=== PATIENT | female | born 1990 | race Caucasian/White ===

== ENCOUNTER 2017-04-24 12:55 | Emergency (ER) | payer SELFPAY ==
[~2017-04-24] VITALS: Ht 165.1 cm; Wt 49.5 kg
[~2017-04-24 12:55] MED LIST: TYLENOL WITH C1 EACH PO
[2017-04-24 13:46] LABS: ADD MIUA? YES; BILIRUBIN NEGATIVE; BLOOD NEGATIVE; COLOR AMBER ((YELLOW)); GLUCOSE (STRIP) NEGATIVE; KETONES NEGATIVE; LEUKOCYTES MODERATE; NITRITE NEGATIVE; PROTEIN (STRIP) 30; SPECIFIC GRAVITY 1.014 (1.000-1.030)
[2017-04-24 14:00] LABS: HEMATOCRIT 41.7 % (36.0-46.0); MCH 30.1 PG (29.0-34.0); PLATELET COUNT 260 K/uL (156-360); RBC DIS.WIDTH-SD 40.3 % (39-53); RED BLOOD COUNT 4.85 M/uL (3.80-5.20); WHITE BLOOD COUNT 12.9 K/uL (4.1-10.2)
[2017-04-24 14:01] LABS: BACTERIA 3+ /HPF; EPITHELIAL CELLS 3+ /HPF; MUCUS NONE SEEN /LPF; RED BLOOD CELLS NONE SEEN /HPF (0-5); WHITE BLOOD CELLS 20-30 /HPF (0-5)
[2017-04-24 14:09] LABS: CHLORIDE 110 mEq/L (99-109); POTASSIUM 3.5 mEq/L (3.7-5.4); SODIUM 138 mEq/L (136-147)
[2017-04-24 14:10] LABS: GLUCOSE 80 mg/dL (70-99)
[2017-04-24 14:12] LABS: ANION GAP 9 MEQ/L (2-14)
[2017-04-24 14:14] LABS: GFR ESTIMATE (CALCULATED) > 59 mL/min/
[2017-04-24 14:15] LABS: UREA NITROGEN (BUN) 4 mg/dL (9-23)
[2017-04-24] MEDS ORDERED: ZOFRAN ODT4 MG PO (14:33)
[2017-04-24] MEDS ORDERED: BENADRYL50 MG PO (14:33)
[2017-04-24] MEDS ORDERED: KEFLEX500 MG PO (14:33)
[2017-04-24 14:54] VITALS: BP 109/68
== END 2017-04-24 14:56 | disposition home or self-care (01) ==
LOC: EME 12:55
PROVIDERS: Physician Assistant
DX: O23.42 Unspecified infection of urinary tract in pregnancy, second trimester (principal); R11.2 Nausea with vomiting, unspecified; F11.23 Opioid dependence with withdrawal; Z3A.15 15 weeks gestation of pregnancy; O99.332 Smoking (tobacco) complicating pregnancy, second trimester
CPT/HCPCS: 80048; 81003; 84702; 85027; 99281; 99285; J1200; J2405; J7030

== ENCOUNTER 2017-10-08 12:07 | Inpatient (IN) | payer OTHER ==
[2017-10-08] VITALS (23 sets, daily range): BP systolic 109–192; BP diastolic 53–90
[~2017-10-08] VITALS: Ht 165.1 cm; Wt 62.5 kg
[~2017-10-08 12:07] MED LIST changes: +BENADRYL50 MG PO; +KEFLEX500 MG PO; +ZOFRAN ODT4 MG PO
[2017-10-08 13:38] LABS: AMPHETAMINES QUANT VALUE 0 NG/ML; BARBITUATES QUANT VALUE 0 NG/ML; BENZODIAZEPINES QUANT VALUE 0 NG/ML; BENZODIAZEPINES, URINE SCREEN Negative (200 ng/mL); MARIJUANA QUANT VALUE 0 NG/ML; OPIATES QUANTITATIVE VALUE 0 NG/ML; PHENCYCLIDINE QUANT VALUE 0 NG/ML
[2017-10-08] MEDS ORDERED: BUPRENORPHINE HC8 MG SL (13:43)
[2017-10-08] MEDS ORDERED: PRENATAL COMPL1 EACH PO (13:43)
[2017-10-08 14:07] LABS: EOSINOPHIL (%) 0.3 % (0-5); EOSINOPHIL COUNT 0.1 K/uL (0-0.3); HEMATOCRIT 39.4 % (36.0-46.0); IMMATURE GRANULOCYTE COUNT 0.2 K/uL; INSTRUMENT ABS NEUTROPHIL CT 12.3 K/uL; LYMPHOCYTE COUNT 2.4 K/uL (1.0-2.8); MCH 28.8 PG (29.0-34.0); MCHC 32.5 G/DL (30.0-36.0); MCV 88.7 FL (83-99); MEAN PLAT.VOLUME 11.3 uM^3 (9.5-12.4); MONOCYTE (%) 4.9 % (3-12); MONOCYTE COUNT 0.8 K/uL (0-0.8); NEUTROPHIL (%) 78.4 % (45-76); NEUTROPHIL COUNT 12.3 K/uL (1.8-6.4); PLATELET COUNT 229 K/uL (156-360); RBC DIS.WIDTH-CV 15.3 % (11.8-14.6); RBC DIS.WIDTH-SD 49.6 % (39-53); RED BLOOD COUNT 4.44 M/uL (3.80-5.20); WHITE BLOOD COUNT 15.6 K/uL (4.1-10.2)
[2017-10-08 14:33] LABS: ALKALINE PHOSPHATASE 221 IU/L (3-129); ANION GAP 9 MEQ/L (2-14); CHLORIDE 105 MEQ/L (99-109); GFR ESTIMATE (CALCULATED) > 59 mL/min/; GLUCOSE 83 mg/dL (70-99); POTASSIUM 3.7 MEQ/L (3.7-5.4); SAMPLE HEMOLYSIS CHECK 0; SAMPLE ICTERIC CHECK 1; SAMPLE LIPEMIA CHECK 0; SODIUM 138 MEQ/L (136-147); TOTAL BILIRUBIN 3.4 MG/DL (0.0-1.0); UREA NITROGEN (BUN) 3 mg/dL (9-23)
[2017-10-08 15:17] LABS: PROBE CHECK PASS
[2017-10-08 15:49] LABS: AMPHETAMINE NEGATIVE (500 ng/mL); BARBITURATES NEGATIVE (200 ng/mL); BENZODIAZEPINES NEGATIVE (150 ng/mL); COCAINE NEGATIVE (150 ng/mL); INTERNAL CONTROLS VALID? YES; METHADONE NEGATIVE (200 ng/mL); METHAMPHETAMINE NEGATIVE (500 ng/mL); OPIATES (MORPHINE) NEGATIVE (100 ng/mL); OXYCODONE NEGATIVE (100 ng/mL); PHENCYCLIDINE NEGATIVE (25 ng/mL); PROPOXYPHENE NEGATIVE (300 ng/mL); THC CANNABINOIDS NEGATIVE (50 ng/mL); TRICYCLIC ANTIDEPRESSANTS NEGATIVE (300 ng/mL)
[2017-10-09 05:46] LABS: BASOPHIL COUNT 0.1 K/uL (0-0.1); EOSINOPHIL (%) 0.2 % (0-5); HEMATOCRIT 30.5 % (36.0-46.0); IMMATURE GRANULOCYTE (%) 0.7 % (0.0-0.7); IMMATURE GRANULOCYTE COUNT 0.2 K/uL; INSTRUMENT ABS NEUTROPHIL CT 16.5 K/uL; LYMPHOCYTE COUNT 3.2 K/uL (1.0-2.8); MCH 29.9 PG (29.0-34.0); MCHC 34.1 G/DL (30.0-36.0); MCV 87.6 FL (83-99); MEAN PLAT.VOLUME 11.9 uM^3 (9.5-12.4); MONOCYTE (%) 5.9 % (3-12); MONOCYTE COUNT 1.3 K/uL (0-0.8); NEUTROPHIL (%) 77.8 % (45-76); NEUTROPHIL COUNT 16.5 K/uL (1.8-6.4); PLATELET COUNT 210 K/uL (156-360); RBC DIS.WIDTH-CV 15.2 % (11.8-14.6); RBC DIS.WIDTH-SD 48.3 % (39-53); WHITE BLOOD COUNT 21.2 K/uL (4.1-10.2)
[2017-10-09 05:47] LABS: RED BLOOD COUNT 3.48 M/uL (3.80-5.20)
[2017-10-09 07:40] VITALS: BP 112/67
[2017-10-09 10:34] LABS: HBSG INDEX 0.13
[2017-10-09 10:35] LABS: ANTI-HEPATITIS A VIRUS (IGM) Nonreactive; HAV INDEX 0.29
[2017-10-09 10:36] LABS: ANTI-HEPATITIS B CORE (IGM) Nonreactive
[2017-10-09 10:38] LABS: HPCA INDEX 12.22
[2017-10-09 15:00] VITALS: BP 121/70
[2017-10-09 17:03] LABS: ANTI-HIV (AIDS STAT TEST) NONREACTIVE; INTERNAL CONTROL VALID? YES
[2017-10-09 22:26] VITALS: BP 125/60
[2017-10-10 07:45] VITALS: BP 129/78
[2017-10-10] MEDS ORDERED: IBUPROFEN800 MG PO (10:51)
[2017-10-10] MEDS ORDERED: MACROBID100 MG PO (10:59)
[2017-10-10] MEDS ORDERED: MOTRIN800 MG PO (11:01)
[2017-10-10 11:07] LABS: HIV INDEX 0.09; HIV-1/2 AB/AG COMBO Nonreactive
[2017-10-10 16:14] VITALS: BP 115/64
== END 2017-10-10 23:36 | disposition home or self-care (01) | DRG 775 ==
LOC: LDRP-OP 12:07 → 2WEST 12:08
PROVIDERS: Advanced Practice Midwife
PROC: 3E0R3BZ Introduction of Anesthetic Agent into Spinal Canal, Percutaneous Approach (ICD-10-PCS; principal; 2017-10-08)
PROC: 00HU33Z Insertion of Infusion Device into Spinal Canal, Percutaneous Approach (ICD-10-PCS; principal; 2017-10-08)
PROC: 10E0XZZ Delivery of Products of Conception, External Approach (ICD-10-PCS; principal; 2017-10-08)
PROC: 0HQ9XZZ Repair Perineum Skin, External Approach (ICD-10-PCS; principal; 2017-10-08)
DX: O99.324 Drug use complicating childbirth (principal); F11.20 Opioid dependence, uncomplicated; F14.10 Cocaine abuse, uncomplicated; O99.334 Smoking (tobacco) complicating childbirth; O69.81X0 Labor and delivery complicated by cord around neck, without compression, not applicable or unspecified; F17.210 Nicotine dependence, cigarettes, uncomplicated; O99.824 Streptococcus B carrier state complicating childbirth; O77.0 Labor and delivery complicated by meconium in amniotic fluid; O70.0 First degree perineal laceration during delivery; Z3A.38 38 weeks gestation of pregnancy; Z37.0 Single live birth
CPT/HCPCS: 80053; 80074; 80306 90; 83036; 85025; 86703; 87077; 87081; 87086; 87186; 87651 90; 87653; C1755; J0571; J2540; J3010; J7120